=== PATIENT | male | born 1975 | race Caucasian/White ===

== ENCOUNTER 2017-02-19 15:12 | Emergency (ER) | payer MEDICAID ==
[~2017-02-19] VITALS: Ht 167.6 cm; Wt 87.5 kg
[2017-02-19] MEDS ORDERED: FLUORESCEIN SOD 1 MG TEST STRIP OP ONE (17:15)
[2017-02-19] MEDS ORDERED: TETRACAINE HCL 0.5% OPTH(EYE) SOLN 4ML EACHEYE ONE (17:15)
[2017-02-19 17:51] VITALS: BP 144/69
== END 2017-02-19 17:51 | disposition home or self-care (01) ==
LOC: ER 15:17

== ENCOUNTER → 2020-03-03 | Emergency (ER) | payer OTHER, MEDICAID ==
[~2020-03-03] VITALS: Ht 167.6 cm; Wt 83.9 kg
[~2020-03-03] MED LIST: SODIUM CHLORIDE 0.9% 1,000 ML IV ONE; methylPREDNISolone SOD SUCC 125 MG/2 ML VL IV ONE
[2020-03-03 20:42] VITALS: BP 111/51
== END | disposition home or self-care (01) ==
LOC: ER 20:41
DX: T78.40XA Allergy, unspecified, initial encounter (principal)
CPT/HCPCS: 96374; 99283; J2930; J7030

== ENCOUNTER 2022-06-01 01:24 | Emergency (ER) | payer MEDICAID, OTHER ==
[~2022-06-01] VITALS: Ht 167.6 cm; Wt 81.8 kg
[2022-06-01 01:26] VITALS: BP 130/84
== END 2022-06-01 02:37 | disposition left against medical advice (07) ==
LOC: ER 01:24
DX: T78.40XA Allergy, unspecified, initial encounter (principal); Z53.21 Procedure and treatment not carried out due to patient leaving prior to being seen by health care provider; X58.XXXA Exposure to other specified factors, initial encounter